=== PATIENT | male | born 1980 ===

== ENCOUNTER 2018-10-20 02:21 | Emergency (ER) | payer SELFPAY ==
--- NOTE | 2018-10-20 02:37 | PDOC ---
History of Present Illness - General Stated Complaint: ALLERGIC REACTION Time Seen by Provider: 10/20/18 02:36 History Source: Patient Exam Limitations: No Limitations - History of Present Illness Initial Comments: Pt is a 37 yo M, with no significant PMH, who is presenting with allergic reaction. Pt states around midnight, he was driving home and noticed itching and hives on his b/l forearms and R side of his back. The pt took 50 mg PO benadryl, which relieved the hives and itching. Pt states the hives are no longer as raised or red as they were when they started. The pt ate dinner ( steak and eggs) at [facility] shortly before the hives started, but has never had this reaction before. Pt denies any fevers/chills, headache, vision changes, throat swelling, difficulty swallowing, chest pain, palpitations, SOB, nausea/ vomiting, abdominal pain, urinary symptoms, or diarrhea/constipation. Known allergies: novocaine (pruritus/hives) Pt smokes 1 pack cigarettes/day, drinks alcohol socially, and uses THC "occasionally". Denies any other drug use. Pt denies any recent travel or sick contacts. 10/20/18 03:05 Past History - Travel Traveled outside of the country in the last 30 days: No Close contact w/someone who was outside of country & ill: No - Past Medical History Allergies/Adverse Reactions: Allergies Allergy/AdvReac Type Severity Reaction Status Date / Time procaine [From Novocain] Allergy Verified 10/20/18 02:47 Home Medications: Ambulatory Orders NK [No Known Home Medication] 10/20/18 Asthma: No Diabetes: No HTN: No Hypercholesterolemia: No Review of Systems - Review of Systems Able to Perform ROS?: Yes Is the patient limited [place] Citizen proficient: No Constitutional: No: Chills, Diaphoresis, Fever, Loss of Appetite, Weakness HEENTM: No: Blurred Vision, Recent change in vision, Nose Congestion, Throat Pain, Throat Swelling, Difficulty Swallowing, Mouth Swelling Respiratory: No: Cough, Orthopnea, Shortness of Breath Cardiac (ROS): No: Chest Pain, Edema, Irregular Heart Rate, Lightheadedness, Palpitations, Syncope, Chest Tightness ABD/GI: No: Constipated, Diarrhea, Difficulty Swallowing, Nausea, Poor Appetite , Poor Fluid Intake, Vomiting, Abdominal cramping : No: Burning, Pain Musculoskeletal: No: Back Pain, Joint Pain, Muscle Pain Integumentary: Yes: See HPI, Erythema, Rash (see HPI) Neurological: No: Headache, Weakness, Dizziness Psychiatric: No: Change in Appetite Endocrine: No: Increased Urine, Change in Weight Hematologic/Lymphatic: No: Anemia, Blood Clots, Easy Bleeding, Easy Bruising All Other Systems: Reviewed and Negative *Physical Exam - Physical Exam General Appearance: Yes: Nourished, Appropriately Dressed. No: Apparent Distress HEENT: positive: EOMI, JUDY, Normal ENT Inspection, Normal Voice, Symmetrical, TMs Normal, Pharynx Normal, Hearing Grossly Normal. negative: Scleral Icterus ( R), Scleral Icterus (L), Muffled/Hoarse voice, Pharyngeal Erythema, Tonsillar Exudate, Tonsillar Erythema, Nasal Congestion, Rhinorrhea, Sinus Tenderness, TM Bulging, TM Dull, TM Erythema, Excessive drooling Neck: positive: Trachea midline, Normal Thyroid, Supple. negative: Tender, Rigid, Stridor, Lymphadenopathy (R), Lymphadenopathy (L) Respiratory/Chest: positive: Lungs Clear, Normal Breath Sounds. negative: Chest Tender, Respiratory Distress, Accessory Muscle Use Cardiovascular: positive: Regular Rhythm, Regular Rate, S1, S2. negative: Edema , JVD, Murmur Vascular Pulses: Carotid (R): 4+, Carotid (L): 4+ Gastrointestinal/Abdominal: positive: Normal Bowel Sounds, Flat, Soft. negative : Tender, Organomegaly, Pulsatile Mass, Distended, Guarding, Rebound Rectal Exam: positive: deferred Lymphatic: negative: Adenopathy, Tenderness Musculoskeletal: positive: Normal Inspection. negative: CVA Tenderness Extremity: positive: Normal Capillary Refill, Normal Inspection, Normal Range of Motion, Pelvis Stable. negative: Tender, Pedal Edema Integumentary: positive: Dry, Warm, Erythema (mild erythema b/l forearms and R side of back with mild hives, no significant areas of raised welts. ), Hives ( see above). negative: Normal Color, Jaundice, Clammy, Diaphoresis, Ecchymosis Neurologic: positive: floor waxer II-XII NML intact, Fully Oriented, Alert, Normal Mood/ Affect, Normal Response, Motor Strength 5/5 Medical Decision Making - Medical Decision Making Pt was seen at bedside, also will be seen by attending Dr. Mckenzie. Pt presenting with allergic reaction. Pt states around midnight, he was driving home and noticed itching and hives on his b/l forearms and R side of his back. The pt took 50 mg PO benadryl, which relieved the hives and itching. Pt states the hives are no longer as raised or red as they were when they started. The pt ate dinner (steak and eggs) at [facility] shortly before the hives started, but has never had this reaction before. Pt denies any fevers/chills, headache, vision changes , throat swelling, difficulty swallowing, chest pain, palpitations, SOB, nausea/ vomiting, abdominal pain, urinary symptoms, or diarrhea/constipation. Known allergies: novocaine (pruritus/hives) Considering mild allergic reaction (food vs environmental -- no recent medication use). Pt does not meet criteria for anaphylaxis as his symptoms include just one system (skin). Unlikely other cellulitis/dermatitis as pt improved after benadryl with obvious hives. Will continue to reassess pt and monitor for symptomatic improvement. 10/20/18 02:58 Providing pt 10 mg PO decadron for pruritus/erythema and to minimize inflammatory response. Considering benign exam (no stridor/pharyngeal erythema, stable vitals, no wheezing/SOB, no tachycardia), pt can be discharged to home with follow-up. Pt advised to follow-up with PCP in 1-2 days. Strict return precautions provided with pt understanding. Pt advised to continue benadryl at home q6-8 hours as needed for pruritus/hives. 10/20/18 03:11 10/20/18 03:22 *DC/Admit/Observation/Transfer Diagnosis at time of Disposition: Hives Allergic reaction Qualifiers: Encounter type: initial encounter Qualified Code(s): T78.40XA - Allergy, unspecified, initial encounter - Discharge Dispostion Disposition: HOME Condition at time of disposition: Good Decision to Admit order: No - Referrals Referrals: [facility] [place] [Provider Group] - Patient Instructions Printed Discharge Instructions: DI for Hives Additional Instructions: You were seen in the ER today for hives/allergic reaction. You can continue to take 25-50 mg oral benadryl at home every 6-8 hours as needed for hives and itching. Please follow-up with your primary care doctor within 1-2 days to discuss your visit and make sure your symptoms have improved. Please return to the ER if you have any worsening hives, difficulty breathing, swelling in your throat, development of fevers or chills, loss of consciousness, inability to tolerate food or fluids, or any other concerns. - Post Discharge Activity
--- NOTE | 2018-10-20 02:51 | PDOC ---
Attending Attestation - Resident Resident Name: Florencia Eddy - ED Attending Attestation I have performed the following: I have examined & evaluated the patient, The case was reviewed & discussed with the resident, I agree w/resident's findings & plan, Exceptions are as noted - HPI HPI: 10/20/18 02:55 37y M no pmhx presents with cc of allergic reaction. was in his [employer] started having pruritis in his forearms and back +hives when he looked in the mirror took benadryl around midnight with improvement of his hives denies sob, n/v, abd pain, facial swelling, lightheadedness, changes in his voice - Physicial Exam PE: General: no acute distress, well appaering ENT: throat patent without signs of swelling PULM: no wheezing, no respiratory distress, speaking complete sentences ABD: soft nontender CARD: rrr, no mrg SKIN: multiple erythemadous, raised patches most prominently on arms, legs, back , - Medical Decision Making suspect allergic reaction no signs of anaphylaxis unclear trigger no new foods/lotions/detergents will treat supportively with benadryl and dose of decadron
[2018-10-20] MEDS ORDERED: DEXAMETHASONE LIQUID 0.5 MG/5 ML 240 ML BULK BOTTLE PO ONE (03:23)
[2018-10-20] MEDS ORDERED: DEXAMETHASONE SOD PHOSPHATE 10 MG/1 ML VIAL ONE (03:29)
[2018-10-20 04:00] VITALS: BP 114/71; PULSE 88; TEMP 97.8; BMI 25.7
== END 2018-10-20 03:37 | disposition home or self-care (01) ==
LOC: JER 02:21
DX: T78.40XA Allergy, unspecified, initial encounter (principal); L50.9 Urticaria, unspecified
CPT/HCPCS: 99282-25